=== PATIENT | female | born 1950 | race African-American/Black ===

== ENCOUNTER 2017-05-28 18:45 | Emergency (ER) | payer MEDICARE ==
[2017-05-28] MEDS ORDERED: Morphine 4 MG/ML Carpuject ONE (19:20)
--- NOTE | 2017-05-28 19:57 | RAD ---
TWO VIEWS CHEST: Comparison: None. History: Patient fell in the tub on [place] with right rib pain. FINDINGS: Two views of the chest show normal sized cardiomediastinal silhouette. There is no evidence of consol idation, mass, or pleural effusion. The bones are unremarkable. IMPRESSION: No evidence of acute cardiopulmonary disease. POS: [facility]
== END 2017-05-28 19:45 | disposition home or self-care (01) ==
LOC: NAV ERS 18:45
DX: S22.31XA Fracture of one rib, right side, initial encounter for closed fracture (principal); J43.9 Emphysema, unspecified; I10 Essential (primary) hypertension; Z87.891 Personal history of nicotine dependence; Z79.899 Other long term (current) drug therapy; W01.0XXA Fall on same level from slipping, tripping and stumbling without subsequent striking against object, initial encounter
CPT/HCPCS: 71046; 94799; 96372; J2270